=== PATIENT | male | born 1990 ===

== ENCOUNTER 2017-12-09 16:21 | Emergency (ER) | payer SELFPAY ==
[2017-12-09 16:36] VITALS: BP 143/84; PULSE 96; RESP 18; TEMP 99.2; O2SAT 100
--- NOTE | 2017-12-09 18:00 | ED PDOC ---
HPI: Male Pain Time Seen by Provider: 12/09/17 17:57 Chief Complaint (Nursing): Male Genitourinary Chief Complaint (Provider): testicular pain History Per: Patient Additional Complaint(s): 19-year-old male presents to emergency department complaining of left testicular pain for one week. Patient states he went to the gym and believes that he injured himself while lifting weights. Patient denies any dysuria or hematuria. He has history of surgery to left testicle several years ago for removal of varicocele. No medications taken for pain relief, no fever or chills , no nausea, vomiting, diarrhea or constipation. PMD: none Past Medical History Reviewed: Historical Data, Nursing Documentation, Vital Signs Vital Signs: Last Vital Signs Temp 99.2 F 12/09/17 16:31 Pulse 96 H 12/09/17 16:31 Resp 18 12/09/17 16:31 BP 143/84 12/09/17 16:31 Pulse Ox 100 12/09/17 16:31 - Medical History PMH: No Chronic Diseases - Surgical History Surgical History: Appendectomy Other surgeries: removal of left varicocele - Family History Family History: States: No Known Family Hx - Living Arrangements Living Arrangements: With Family - Social History Current smoker - smoking cessation education provided: No Alcohol: Social Drugs: Denies - Allergies Allergies/Adverse Reactions: Allergies Allergy/AdvReac Type Severity Reaction Status Date / Time No Known Allergies Allergy Verified 12/09/17 16:31 Review of Systems ROS Statement: Except As Marked, All Systems Reviewed And Found Negative Constitutional: Negative for: Fever, Chills Gastrointestinal: Negative for: Nausea, Vomiting, Abdominal Pain, Diarrhea Genitourinary Male: Positive for: Scrotal Pain (left testicular pain). Negative for: Dysuria, Frequency, Incontinence, Hematuria Physical Exam - Reviewed Nursing Documentation Reviewed: Yes Vital Signs Reviewed: Yes - Physical Exam Appears: Positive for: Well, Non-toxic, No Acute Distress Skin: Negative for: Rash Eye Exam: Positive for: Normal appearance Cardiovascular/Chest: Positive for: Regular Rate, Rhythm Respiratory: Positive for: Normal Breath Sounds Gastrointestinal/Abdominal: Positive for: Soft. Negative for: Tenderness Extremity: Positive for: Normal ROM Neurologic/Psych: Positive for: Alert, Oriented - ECG O2 Sat by Pulse Oximetry: 100 Pulse Ox Interpretation: Normal Medical Decision Making Medical Decision Makin-year-old male with left testicular pain Plan: PO motrin Testes US Urine dip Disposition - Clinical Impression Clinical Impression: Testicular pain - Patient ED Disposition Is Patient to be Admitted: Transfer of Care - Disposition Disposition: Transfer of Care Disposition Time: 20:00 Condition: STABLE Forms: [facility] (Marshallese) Patient Signed Over To: Ashly Martin Handoff Comments: Signed out pending diagnostic testing results and final disposition
--- NOTE | 2017-12-09 20:35 | ED PDOC ---
- ECG O2 Sat by Pulse Oximetry: 100 - Progress ED Course And Treament: US testicular: Epidymal cyst Medical Decision Making Medical Decision Making: FINDINGS: Right testicle: No mass. No torsion. Left testicle: No mass. No torsion. Epididymides: 0.6 x 0.4 x 0.5 cm right epididymal cyst. 0.6 x 0.5 x 0.5 cm left epididymal cyst. Scrotum: Unremarkable. IMPRESSION: 1. No definite sonographic evidence of testicular torsion. 2. Incidental/non-acute findings are described above. Thank you for allowing us to participate in the care of your patient. Dictated and Authenticated by: Miguel Angel Pickard MD 12/09/2017 8:52 PM Eastern Time ([place] & [place]) Disposition - Clinical Impression Clinical Impression: Testicular pain - POA Present On Arrival: None - Disposition Referrals: Will Tomlin MD [Medical Doctor] - Disposition: Routine/Home Disposition Time: 21:05 Condition: FAIR Additional Instructions: YOU HAVE AN EPIDYDMAL CYST. PLEASE F/U WITH UROLOGY Prescriptions: Naproxen 1 tab PO Q12 PRN #14 tab PRN Reason: Pain, Moderate (4-7) Instructions: Testicle Pain (ED) Forms: [facility] (Cam[place]onian), [facility] ED School/Work Excuse
--- NOTE | 2017-12-09 20:53 | US ---
EXAM: US Scrotum CLINICAL HISTORY: 27 years old, male; Pain; Scrotum pain; Additional info: Left testicular pain and swelling, h/o varicocele TECHNIQUE: Real-time ultrasound of the scrotum with color Doppler and image documentation. COMPARISON: No relevant prior studies available. FINDINGS: Right testicle: No mass. No torsion. Left testicle: No mass. No torsion. Epididymides: 0.6 x 0.4 x 0.5 cm right epididymal cyst. 0.6 x 0.5 x 0.5 cm left epididymal cyst. Scrotum: Unremarkable. IMPRESSION: 1. No definite sonographic evidence of testicular torsion. 2. Incidental/non-acute findings are described above.
== END 2017-12-09 21:37 | disposition home or self-care (01) ==
LOC: H.ER 16:21
DX: N50.3 Cyst of epididymis (principal)